=== PATIENT | female | born 1980 | race Native Hawaiian/Other Pacific Islander ===

== ENCOUNTER 2017-11-01 15:35 | Outpatient (CLI) | payer OTHER | END 2017-11-01 19:43 | disposition home or self-care (01) | LOC: RAD 15:35 | DX: M25.532 Pain in left wrist (principal) ==

== ENCOUNTER 2018-07-31 09:41 | Outpatient (CLI) | payer OTHER | END 2018-07-31 22:06 | disposition home or self-care (01) | LOC: LABW 09:41 | DX: Z30.42 Encounter for surveillance of injectable contraceptive (principal) ==